=== PATIENT | male | born 1950 | race Caucasian/White ===

== ENCOUNTER → 2017-05-02 | Outpatient (REF) | payer MEDICARE, OTHER ==
[~2017-05-02] MED LIST: FLU44R IH; KET10 PO; METR250 PO; NIA500 PO; ONDA4TAB PO; PER PO; PRO25 PO; SIM10 PO; ZYPAN
[2017-05-02 10:19] LABS: PLATELET COUNT, AUTOMATED 206 K/uL (150-450)
== END ==
PROVIDERS: ATTEND Nurse Practitioner Family
DX: R10.9 Unspecified abdominal pain (principal)
CPT/HCPCS: 82040; 82247; 82310; 82374; 82435; 82565; 82947; 84075; 84132; 84155; 84295; 84450; 84460; 84520; 85025

== ENCOUNTER → 2017-12-22 | Outpatient (CLI) | payer MEDICARE, OTHER ==
[~2017-12-22] MED LIST changes: +ASPI81TA94 PO; +CHLO4TAB PO; +LORA-629 PO; +NAPR220C12 PO; +ROSU5TAB8 PO; +TADA5TAB7 PO; +[UNRECOGNIZED DRUG - CODE] PO
== END ==
LOC: LAB 14:03
PROVIDERS: ATTEND Surgery
DX: I50.9 Heart failure, unspecified (principal); I10 Essential (primary) hypertension
CPT/HCPCS: 36415; 82565

== ENCOUNTER → 2017-12-24 | Outpatient (CLI) | payer MEDICARE, OTHER ==
[~2017-12-24] MED LIST changes: +IOPAMIDOL 76% 75 ML INFUS BTL 75 ML ONE
--- NOTE | 2017-12-24 09:08 | RADIOLOGY IMAGING REPORT ---
FACILITY: [facility] PATIENT NAME: Jon Cassidy : 1950 MR: [id number] V: [id number] EXAM DATE: ORDERING PHYSICIAN: ANNETTE RIZVI TECHNOLOGIST: Location: [facility] [place] Patient: Jon Cassidy : 1950 Visit/Account:[id number] Date of Sevice: 12/24/2017 ABDOMEN/PELVIS WITH CONTRAST HISTORY: Lower abdominal pain. Blood per rectum. TECHNIQUE: Axial images acquired through the abdomen/pelvis both with and without IV contrast.. Radha nal and sagittal reformatting also performed. One of the following dose optimization techniques was utilized in the performance of this exam: Automated exposure control; adjustment of the mA and/or kV according to the patient's size; or use of an iterative reconstruction technique. Specific details can be referenced in the facility's radiology CT exam operational policy. CONTRAST: 75 mL [id number] COMPARISON: None. FINDINGS: Visualized lung bases: There is a Bochdalek hernia peritoneal fat in the posterior medial right lowe r lung measuring 9 x 6 cm. Hepatobiliary: Homogenous liver. No focal liver lesions. Status post cholecystectomy. Spleen: Negative. Adrenals: Negative. Pancreas: Negative. Kidneys ureters and bladder: Negative. Genitalia: Prostate is enlarged measuring 4.8 cm. GI: Study demonstrates diverticulosis without evidence of diverticulitis. No bowel edema. No divert iculitis noted. Appendix is normal. 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 Small umbilical her niation of peritoneal fat Additional findings: None pertinent. IMPRESSION: 1. No acute intra-abdominal or pelvic pathology. 2. Bochdalek hernia in the right lower lung. 3. Diverticulosis without evidence of diverticulitis. 4. Soft tissue sessile density along the right lateral aspect of the rectum measuring approximately 7 x 12 mm. This may represent adherent stool. In the context of blood per rectum, a polyp colonic l esion not excluded. Recommend clinical correlation and colonoscopy if clinically indicated. Report Dictated By: Miquel Bustamante MD at 12/24/2017 8:26 AM Report E-Signed By: Miquel Bustamante MD at 12/24/2017 9:04 AM WSN:[email or web address]
== END ==
LOC: CT 00:46
PROVIDERS: ATTEND Surgery
DX: Q79.0 Congenital diaphragmatic hernia (principal); K57.90 Diverticulosis of intestine, part unspecified, without perforation or abscess without bleeding
CPT/HCPCS: 74177; Q9967

== ENCOUNTER 2018-01-19 02:26 | Day surgery (SDC) | payer MEDICARE, OTHER ==
[~2018-01-19] VITALS: Ht 175.3 cm; Wt 83.0 kg
[~2018-01-19 02:26] MED LIST changes: -IOPAMIDOL 76% 75 ML INFUS BTL 75 ML ONE
[2018-01-19] MEDS ORDERED: NORMOSOL R SOLN(*) 1000 ML BAG 1,000 ML IV PRN (06:30)
[2018-01-19] MEDS ORDERED: LIDOCAINE/SOD BICARB 8.4% SYR ID ONE (06:30)
[2018-01-19 06:37] VITALS: BP 113/81
[2018-01-19] MEDS ORDERED: LIDOCAINE MPF 1% 5 ML VIAL ONE (06:59)
[2018-01-19] MEDS ORDERED: PROPOFOL EMUL(*) 10MG/ML 20 ML 60 ML ONE (06:59)
[2018-01-19] MEDS ORDERED: KETAMINE HCL 500 MG/10 ML VIAL ONE (07:04)
[2018-01-19] MEDS ORDERED: PROPOFOL EMUL(*) 10MG/ML 20 ML 20 ML ONE (08:01)
[2018-01-19 08:47] VITALS: BP 95/74
--- NOTE | 2018-01-19 08:58 | Short(Outpt) Discharge Summary ---
Discharge Summary Reason for Hosp/Final Diag: (1) Lower abdominal pain Status: Chronic Hospital Course & Plan: EGD with bx and colonoscopy with polypectomy x6 completed without problems. (2) Melena Status: Chronic (3) Hematochezia Status: Chronic Departure Discharge to: Home, Self Care Discharge Instructions Home Meds Reported Medications Rosuvastatin Calcium (CRESTOR) 5 Mg Tablet, 2.5 MG PO 2XW 01/05/18 Chlorpheniramine Maleate (ALLERGY RELIEF) 4 Mg Tablet, 1 TAB PO QDAY PRN for ALLERGY SYMPTOMS 12/03/17 Loratadine (LORATADINE) 10 Mg Tablet, 1 TAB PO QDAY PRN for PRN 12/03/17 Naproxen Sodium (ALEVE) 220 Mg Capsule, 1-2 CAP PO BID PRN for PAIN, CAPSULE 12/03/17 Aspirin (ASPIRIN) 81 Mg Tab.chew, 1 TAB PO QDAY PRN for PAIN, TAB.CHEW 12/03/17 Tadalafil (CIALIS) 5 Mg Tablet, 1 TAB PO QDAY 12/03/17 Niacin (NIACIN) 1,000 Mg Tablet.er, 1 TAB PO QDAY 12/03/17 Diet: Regular Activity: As Tolerated Special Instructions: Your upper endoscopy and colonoscopy were completed without problems and your prep was excellent (Good Job!!). I saw some inflammation in your lower stomach and where your esophagus empties into your stomach and these areas were biopsied. I removed 6 polyps from your colon. My office will call you in the next couple of days to schedule a follow up appointment to see me in my office to discuss these results in the next 3-4 weeks. ANNETTE RIZVI MD Jan 19, 2018 08:58
[2018-01-19 09:00] VITALS: BP 105/65
[2018-01-19 09:15] VITALS: BP 107/90
[2018-01-19 09:27] VITALS: BP 117/74
[2018-01-19 09:28] VITALS: BP 107/81
== END 2018-01-19 09:45 | disposition home or self-care (01) ==
LOC: OR 02:26
PROVIDERS: ATTEND Surgery
DX: D12.4 Benign neoplasm of descending colon (principal); D12.3 Benign neoplasm of transverse colon; K62.1 Rectal polyp; K44.9 Diaphragmatic hernia without obstruction or gangrene; K29.70 Gastritis, unspecified, without bleeding
CPT/HCPCS: 00811; 36415; 43239; 45380; 45385; 83516; 87077; 88305; 88344; J2001; J2704; J3490